=== PATIENT | female | born 1965 | race Caucasian/White ===

== ENCOUNTER 2021-09-22 10:17 | Outpatient (CLI) | payer BC | END 2021-09-22 10:18 | disposition home or self-care (01) | LOC: CSHMAMMO 10:17 | PROVIDERS: ATTEND Family Medicine | DX: Z12.31 Encounter for screening mammogram for malignant neoplasm of breast (principal) | CPT/HCPCS: 77063; 77067 ==

== ENCOUNTER 2021-12-29 15:33 | Outpatient (CLI) | payer BC | END 2021-12-29 15:34 | disposition home or self-care (01) | LOC: CSHULT 15:33 | PROVIDERS: ATTEND Family Medicine | DX: E03.9 Hypothyroidism, unspecified (principal); E04.1 Nontoxic single thyroid nodule | CPT/HCPCS: 76536 ==

== ENCOUNTER 2024-05-15 11:20 | Outpatient (CLI) | payer BC | END 2024-05-15 11:21 | disposition home or self-care (01) | LOC: CSHMAMMO 11:20 | PROVIDERS: ATTEND Obstetrics & Gynecology | DX: Z12.31 Encounter for screening mammogram for malignant neoplasm of breast (principal) | CPT/HCPCS: 77063; 77067 ==